=== PATIENT | female | born 1995 | race Caucasian/White ===

== ENCOUNTER 2021-08-02 17:44 | Emergency (ER) | payer OTHER ==
[~2021-08-02] VITALS: Ht 157.5 cm; Wt 68.5 kg
--- NOTE | 2021-08-02 19:25 | NUR ---
[id number] FROM HOME C/O AUDITORY HALLUCINATIONS, PT STATED "I NEED THE VOICES TO STOP". PT DENIES SI/HI. PT ADMITS TO SMOKING METH. PATIENT IS A/O, RR EVEN AND UNLABORED, NO SOB NOTED. PT VSS. TAKEN TO ER EBD 15. SITTER AT BEDSIDE
[2021-08-02] MEDS ORDERED: OLANZAPINE 5 MG TABLET PO ONE (20:00)
[2021-08-02] MEDS ORDERED: OLANZAPINE 5 MG TABLET ONE (20:56)
--- NOTE | 2021-08-03 00:05 | NUR ---
PT IN BED, SLEEPING. NO DISTRESS NOTED.
--- NOTE | 2021-08-03 04:45 | NUR ---
PT VERBALIZED THAT SHE IS FEELING BETTER. PT IS AMBULATORY ON STEADY TO THE RESTROOM.
--- NOTE | 2021-08-03 04:55 | NUR ---
Patient discharged to home in stable condition. Written and verbal after care instructions given. Patient verbalizes understanding of instruction. Pt ambulatory with a steady gait
[2021-08-03 04:56] VITALS: BP 143/78
== END 2021-08-03 04:56 | disposition home or self-care (01) ==
LOC: ER 19:06
DX: F12.229 Cannabis dependence with intoxication, unspecified (principal); R00.0 Tachycardia, unspecified

== ENCOUNTER 2025-06-16 10:30 | Emergency (ER) | payer OTHER ==
[~2025-06-16] VITALS: Ht 162.6 cm; Wt 68.9 kg
[2025-06-16 12:19] LABS: PLATELET COUNT (AUTO) 306 K/uL (150-450); RED BLOOD CELL COUNT(AUTO) 4.55 MIL/uL (4.0-5.2); RED CELL DISTRIBUTION WIDTH 14.5 % (11.5-15.0); WHITE BLOOD COUNT (AUTO) 8.5 K/uL (4.3-11.0)
[2025-06-16 12:41] LABS: CALCIUM, SERUM 8.3 mg/dL (8.5-10.1); CREATININE 0.5 mg/dL (0.6-1.3); SODIUM SERUM 139 mmol/L (136-145); UREA NITROGEN, BLOOD 11 mg/dL (7-18)
[2025-06-16 12:45] LABS: APPEARANCE,URINE CLEAR (CLEAR); BLOOD, URINE NEGATIVE Ery/uL (NEGATIVE); LEUKOCYTE ESTERASE ,URINE TRACE (NEGATIVE); NITRITE, URINE NEGATIVE (NEGATIVE); UGLUCOSE NEGATIVE (NEGATIVE)
[2025-06-16 12:47] LABS: ALCOHOL, BLOOD < 3 mg/dL (0-10); ASPARTATE AMINOTRANSFERASE 25 U/L (15-37); TOTAL PROTEIN, SERUM 7.7 g/dL (6.4-8.2)
[2025-06-16 12:56] LABS: BARBITURATE, URINE NEGATIVE (NEGATIVE); BENZODIAZEPINE, URINE NEGATIVE (NEGATIVE); CANNABINOID, URINE NEGATIVE (NEGATIVE); COCCAINE, URINE NEGATIVE (NEGATIVE); OPIATE, URINE NEGATIVE (NEGATIVE)
[2025-06-16 13:00] LABS: AMPHETAMINE, URINE POSITIVE (NEGATIVE)
[2025-06-16 13:02] LABS: ADD URINE CULTURE NO
[2025-06-16 14:44] LABS: PREGNANCY TEST URINE QUAL NEGATIVE (NEGATIVE)
[2025-06-16 14:55] VITALS: BP 148/97; TEMP 97.7; O2SAT 99
== END 2025-06-16 14:56 ==
LOC: ER 10:30
DX: R45.851 Suicidal ideations (principal); F20.9 Schizophrenia, unspecified
CPT/HCPCS: 36415; 80048-TC; 80076-TC; 81001; 84703-TC; 85025-TC; G0480